=== PATIENT | female | born 1990 | race Caucasian/White ===

== ENCOUNTER 2023-08-20 11:00 | Outpatient (CLI) | payer OTHER | END 2023-08-20 11:15 | disposition home or self-care (01) | LOC: LAB.N 11:00 | PROVIDERS: ATTEND Physician Assistant | DX: Z32.01 Encounter for pregnancy test, result positive (principal) | CPT/HCPCS: 36415; 84702 ==

== ENCOUNTER 2023-08-27 08:00 | Outpatient (CLI) | payer OTHER ==
[2023-08-27 17:40] LABS: BILIRUBIN,URINE NEGATIVE (NEGATIVE); GLUCOSE, URINE (UA) NEGATIVE (NEGATIVE); KETONES,URINE (UA) NEGATIVE (NEGATIVE); LEUKOCYTE ESTERASE, URINE TRACE (NEGATIVE); NITRITE,URINE NEGATIVE (NEGATIVE); OCCULT BLOOD,URINE NEGATIVE (NEGATIVE); PROTEIN,URINE NEGATIVE (NEGATIVE); UROBILINOGEN,URINE 0.2 (NORMAL) E.U./dL (NORMAL)
[2023-08-27 17:52] LABS: BACTERIA,URINE Rare /HPF (None Seen); CLARITY,URINE CLEAR (CLEAR); RBC,URINE 0-5 /HPF (0-5); SQUAMOUS EPITHELIAL CELL,UR RARE Squamous (<= Few); WBC,URINE 0-3 /HPF (0-5)
== END 2023-08-27 23:59 | disposition home or self-care (01) ==
LOC: LAB.WC 08:00
PROVIDERS: ATTEND Obstetrics & Gynecology
DX: Z34.90 Encounter for supervision of normal pregnancy, unspecified, unspecified trimester (principal)
CPT/HCPCS: 81001; 87086

== ENCOUNTER 2023-09-04 19:00 | Outpatient (CLI) | payer OTHER ==
--- NOTE | 2023-09-06 22:06 | Ultrasound Report ---
PROCEDURE: OB 1st Trimester w/TV INDICATIONS: POSITIVE TEST OUTSIDE/PRIOR DATING DATA: Last menstrual period (LMP): 07/13/2023. LMP-based estimated date of delivery (OSCAR): 04/18/2024. First dating scan (date and location): 09/04/2023. Estimated date of delivery (OSCAR) from first dating scan: 04/15/2024. TECHNIQUE: Real-time scanning was performed of the fetus and maternal pelvic organs, with image documentation. Endovaginal scanning was also performed to better visualize the fetus and maternal ovaries. COMPARISON: None. FINDINGS: Intrauterine gestational sac present. Mean gestational sac diameter is 3.87 cm with estima mook gestational age of 9 weeks and 2 days. Embryo: [place]-rump length is 1.58 cm with estimated gestational age of 8 weeks and 0 days Heart rate: 166 bpm. Cervix is closed. Estimated gestational age by initial ultrasound is 8 weeks and 0 days. Other: Subchorionic hematoma measuring 1.9 x 1.5 x 2.7 cm. Measurement variability in dating: +/- 4 weeks by LMP, +/- 7 days by mean sac diameter (use before 6 weeks gestation if crown-rump length not able to be measured), +/- 5 days by crown-rump length (6-12 weeks gestation). Maternal organs: Ovaries appear within normal limits. Right corpus luteal cyst. IMPRESSION: 1.Single living intrauterine with estimated gestational age of 8 weeks and 0 days. 2.Subchorionic hematoma measuring 1.9 x 1.5 x 2.7 cm. 3.Right corpus luteal cyst. Reviewed by: Shira Olguin MD on 09/06/2023 10:05 PM PDT Approved by: Shira Olguin MD on 09/06/2023 10:05 PM PDT Station ID: [id number]
== END 2023-09-04 19:01 | disposition home or self-care (01) ==
LOC: DI 19:00
PROVIDERS: ATTEND Obstetrics & Gynecology
DX: O46.8X1 Other antepartum hemorrhage, first trimester (principal); O34.81 Maternal care for other abnormalities of pelvic organs, first trimester; N83.11 Corpus luteum cyst of right ovary; Z3A.08 8 weeks gestation of pregnancy

== ENCOUNTER 2023-09-10 08:00 | Outpatient (CLI) | payer OTHER ==
[2023-09-11 00:02] LABS: CHLAMYDIA TRACHOMATIS DNA NEGATIVE (NEGATIVE); NEISSERIA GONORRHOEAE DNA NEGATIVE (NEGATIVE); TRICHOMONAS VAGINALIS DNA NEGATIVE (NEGATIVE)
[2023-09-11 21:58] LABS: BACTERIAL VAGINOSIS DNA POSITIVE (NEGATIVE); CANDIDA GLABRATA DNA NEGATIVE (NEGATIVE); CANDIDA GROUP DNA NEGATIVE (NEGATIVE); CANDIDA KRUSEI DNA NEGATIVE (NEGATIVE); TRICHOMONAS VAGINALIS DNA NEGATIVE (NEGATIVE)
== END 2023-09-10 23:59 | disposition home or self-care (01) ==
LOC: LAB.WC 08:00
PROVIDERS: ATTEND Nurse Practitioner
DX: N89.8 Other specified noninflammatory disorders of vagina (principal)
CPT/HCPCS: 81514; 87491; 87591; 87661

== ENCOUNTER 2023-09-28 12:04 | Outpatient (CLI) | payer OTHER ==
[2023-09-28 12:34] LABS: BASOPHILS % (AUTO) 0.3 %; EOSINOPHILS # (AUTO) 0.1 10^3/uL (0.0-0.7); EOSINOPHILS % (AUTO) 1.6 %; HCT - HEMATOCRIT 37.5 % (37.0-47.0); HGB - HEMOGLOBIN 12.6 g/dL (12.0-16.0); LYMPHOCYTES # (AUTO) 1.1 10^3/uL (1.5-3.5); LYMPHOCYTES % (AUTO) 16.9 %; MEAN CORPUSCULAR HGB CONC 33.6 g/dL (32.0-36.0); MEAN CORPUSCULAR VOLUME 92.4 fL (81.0-99.0); MONOCYTES # (AUTO) 0.5 10^3/uL (0.0-1.0); NEUTROPHILS # (AUTO) 4.9 10^3/uL (1.5-6.6); NEUTROPHILS % (AUTO) 73.6 %; PLT - PLATELET COUNT 230 10^3/uL (130-450); RED BLOOD COUNT 4.06 10^6/uL (4.20-5.40); RED CELL DISTRIBUTION WIDTH 11.7 % (12.0-15.0); WHITE BLOOD COUNT 6.7 x10^3/uL (4.8-10.8)
[2023-09-28 13:02] LABS: CREATININE,URINE 42.4 mg/dL; PROTEIN/CREATININE RATIO,URINE 0.1 (<=0.2)
[2023-09-28 13:02] LABS: ALBUMIN 4.2 g/dL (3.2-5.5); ALBUMIN/GLOBULIN RATIO 1.7 (1.0-2.2); BILIRUBIN,TOTAL 0.4 mg/dL (0.2-1.0); CALCIUM 9.8 mg/dL (8.5-10.3); CREATININE 0.5 mg/dL (0.6-1.3); POTASSIUM 3.2 mmol/L (3.5-4.5); TOTAL PROTEIN 6.7 g/dL (6.4-8.9)
[2023-09-29 02:08] LABS: HBsAG SCREEN Negative (Negative); HIV SCREEN 4TH GENERATION Non Reactive (Non Reactive)
[2023-09-29 04:09] LABS: RPR Non Reactive (Non Reactive)
[2023-09-29 09:11] LABS: VARICELLA-ZOSTER AB IGG 521 index (Immune >165)
== END 2023-09-28 12:05 | disposition home or self-care (01) ==
LOC: LAB 12:04
PROVIDERS: ATTEND Obstetrics & Gynecology
DX: O10.011 Pre-existing essential hypertension complicating pregnancy, first trimester (principal)
CPT/HCPCS: 36415; 80053; 82570; 84156; 85025; 86592; 86762; 86787; 86803; 86850; 86900; 86901; 87340; 87389

== ENCOUNTER 2023-10-26 12:15 | Outpatient (CLI) | payer OTHER | END 2023-10-26 12:16 | disposition home or self-care (01) | LOC: LAB 12:15 | PROVIDERS: ATTEND Obstetrics & Gynecology | DX: Z34.90 Encounter for supervision of normal pregnancy, unspecified, unspecified trimester (principal) | CPT/HCPCS: 36415; 82105 ==

== ENCOUNTER 2023-12-03 15:53 | Outpatient (CLI) | payer OTHER ==
--- NOTE | 2023-12-04 14:04 | Ultrasound Report ---
PROCEDURE: OB Anatomy Scan INDICATIONS: SUPERVISION OF The below data below was generated using the working OSCAR of 12/14/2024 TECHNIQUE: Ultrasound of the gravid uterus was performed and recorded. COMPARISON: None. FINDINGS: General: A single live intrauterine gestation is present. Presentation: Variable Placenta: Placental position is anterior without previa. Amniotic fluid index: 12.5 cm, 27 percentile for gestational age. heart rate: 148 beats per minute. Maternal cervical canal: 3.98 cm long; normal length is 2.5 cm or more. biometrics: Biparietal diameter: 4.8 cm, 20 week 5 day, 42 percentile Head circumference: 19 cm, 21 week 3 day, 67 percentile Abdominal circumference: 15 cm, 20 week 3 day, 28 percentile Femur length: 3.4 cm, 20 week 5 day, 34 percentile Estimated gestational age by working dates: 20 week 6 day Composite gestational age by current ultrasound: 20 week 5 day Estimated weight and percentile: 3007 5 g, 32 percentile Measurement variability in biometric dating: +/- 10 days from 12-20 weeks gestation, +/- 2 weeks from 20-30 weeks gestation, +/- 3 weeks at 30 weeks gestation or more. Anatomic survey: Neuro: Ventricles are non-dilated at less than 10 mm. Cisterna magna is normal at 3-11 mm. Cerebel lum is normal in size and morphology. Nuchal skin fold: Normal at less than 6 mm between 14-20 weeks gestational age. Face: Nose and lips, facial profile are normal. Spine: Not well seen Heart: 4-chambered heart is present, with normal ventricular outflow tracts. Diaphragm: Diaphragm is intact. Stomach: Left-sided stomach is present. Kidneys: No hydronephrosis. Normal is less than 5 mm in 2nd trimester, less than 7 mm in 3rd trimester. Cord: 3-vessel cord . Cord insertion not well seen Bladder: Normal in size. Extremities: All 4 extremities identified. Other: Not applicable. IMPRESSION: Single live intrauterine consistent with 20 week 5 day gestation by current ultrasound Placental cord insertion and spine not well seen. Attention on follow-up. Reviewed by: Michael Sharma MD on 12/04/2023 1:03 PM RAFFY Approved by: Michael Sharma MD on 12/04/2023 1:03 PM RAFFY Station ID: [id number]
== END 2023-12-03 15:54 | disposition home or self-care (01) ==
LOC: DI 15:53
PROVIDERS: ATTEND Obstetrics & Gynecology
DX: Z34.92 Encounter for supervision of normal pregnancy, unspecified, second trimester (principal)

== ENCOUNTER 2023-12-21 10:15 | Outpatient (CLI) | payer OTHER ==
--- NOTE | 2023-12-22 00:55 | Ultrasound Report ---
PROCEDURE: OB Follow up INDICATIONS: SUPERVISION OF OUTSIDE/PRIOR DATING DATA: Last menstrual period (LMP): 07/13/2023. LMP-based estimated date of delivery (OSCAR): 04/18/2024. First dating scan (date and location): 09/04/2023. Estimated date of delivery (OSCAR) from first dating scan: 04/15/2024. The below data below was generated using the working OSCAR of 04/15/2024 TECHNIQUE: Ultrasound of the gravid uterus was performed and recorded. COMPARISON: None. FINDINGS: General: A single live intrauterine gestation is present. Presentation: Vertex Placenta: Placental position is anterior without previa. Amniotic fluid index: 13.5 cm, 35 percentile for gestational age. heart rate: 132 beats per minute. Maternal cervical canal: 3.6 cm long; normal length is 2.5 cm or more. Estimated gestational age by working dates: 23 week 3 day spine and Cord insertion are within normal limits Other: Not applicable. IMPRESSION: Single live intrauterine consistent with 23 week 3 day gestation by current ultrasound Normal complete anatomic survey Reviewed by: Michael Sharma MD on 12/21/2023 11:54 PM RAFFY Approved by: Michael Sharma MD on 12/21/2023 11:54 PM RAFFY Station ID: [id number]
== END 2023-12-21 10:16 | disposition home or self-care (01) ==
LOC: DI 10:15
PROVIDERS: ATTEND Obstetrics & Gynecology
DX: Z34.92 Encounter for supervision of normal pregnancy, unspecified, second trimester (principal)

== ENCOUNTER 2024-04-01 08:01 | Inpatient (IN) ==
[2024-04-01] MEDS ORDERED: METHYLERGONOVINE 0.2 MG/ML VIAL IM PRN ×2 (08:13→09:19)
[2024-04-01] MEDS ORDERED: miSOPROStoL 200 MCG TABLET BC PRN (08:13)
[2024-04-01] MEDS ORDERED: LABETALOL 20 MG/4 ML SYRINGE IVP PRN ×5 (08:13→09:19)
[2024-04-01] MEDS ORDERED: hydrALAZINE INJ 20 MG/ML VIAL IVP PRN ×3 (08:13→09:19)
[2024-04-01] MEDS ORDERED: NIFEdipine 10 MG CAPSULE PO PRN ×2 (08:13→09:19)
[2024-04-01] MEDS ORDERED: CARBOPROST TROMETHAMINE 250 MCG/ML VIAL IM PRN (08:13)
[2024-04-01] MEDS ORDERED: lidocaine 1% 20 ML MDV ID PRN (08:13)
[2024-04-01] MEDS ORDERED: LACTATED RINGERS 1,000 ML IV PRN ×2 (08:13→09:19)
[2024-04-01] MEDS ORDERED: SODIUM CHLORIDE FLUSH 0.9% 10 ML SYRINGE IVP PRN ×2 (08:13→09:19)
[2024-04-01] MEDS ORDERED: OXYTOCIN 10 UNIT/ML VIAL IM PRN (08:13)
[2024-04-01] MEDS ORDERED: miSOPROStoL 200 MCG TABLET PR PRN (09:19)
[2024-04-01] MEDS ORDERED: ONDANSETRON 4 MG/2 ML VIAL IVP PRN (09:19)
[2024-04-01] MEDS ORDERED: ONDANSETRON ODT 4 MG TABLET TL PRN (09:19)
[2024-04-01] MEDS ORDERED: OXYTOCIN/SODIUM CHLORIDE 500 ML IV PRN (09:19)
[2024-04-01] MEDS ORDERED: fentaNYL 100 MCG/2 ML VIAL IVP PRN (09:19)
[2024-04-01] MEDS ORDERED: METOCLOPRAMIDE 10 MG/2 ML VIAL IVP PRN (09:19)
[2024-04-01] MEDS ORDERED: METOCLOPRAMIDE 10 MG TABLET PO PRN (09:19)
[2024-04-01] MEDS: miSOPROStoL 100 MCG TABLET VG SCH (09:26)
[2024-04-01 09:37] LABS: BASOPHILS # (AUTO) 0.1 10^3/uL (0.0-0.1); BASOPHILS % (AUTO) 0.4 %; EOSINOPHILS # (AUTO) 0.1 10^3/uL (0.0-0.7); EOSINOPHILS % (AUTO) 0.9 %; HCT - HEMATOCRIT 38.6 % (37.0-47.0); HGB - HEMOGLOBIN 12.6 g/dL (12.0-16.0); LYMPHOCYTES # (AUTO) 1.2 10^3/uL (1.5-3.5); LYMPHOCYTES % (AUTO) 10.5 %; MEAN CORPUSCULAR HEMOGLOBIN 30.1 pg (27.0-31.0); MEAN CORPUSCULAR HGB CONC 32.6 g/dL (32.0-36.0); MEAN CORPUSCULAR VOLUME 92.3 fL (81.0-99.0); MEAN PLATELET VOLUME 11.6 fL (7.9-10.8); MONOCYTES # (AUTO) 0.8 10^3/uL (0.0-1.0); MONOCYTES % (AUTO) 6.6 %; NEUTROPHILS # (AUTO) 9.5 10^3/uL (1.5-6.6); PLT - PLATELET COUNT 245 10^3/uL (130-450); RED BLOOD COUNT 4.18 10^6/uL (4.20-5.40); RED CELL DISTRIBUTION WIDTH 12.7 % (12.0-15.0); WHITE BLOOD COUNT 11.7 x10^3/uL (4.8-10.8)
[2024-04-01] MEDS ORDERED: TERBUTALINE 1 MG/ML VIAL SUBQ SCH (10:00)
[2024-04-01] MEDS ORDERED: SODIUM CHLORIDE 0.9% 1,000 ML IV SCH (10:00)
[2024-04-01 11:04] LABS: ALBUMIN 3.8 g/dL (3.2-5.5); ALBUMIN/GLOBULIN RATIO 1.5 (1.0-2.2); BILIRUBIN,TOTAL 0.5 mg/dL (0.2-1.0); CALCIUM 9.3 mg/dL (8.5-10.3); CREATININE 0.6 mg/dL (0.6-1.3); POTASSIUM 3.8 mmol/L (3.5-4.5); TOTAL PROTEIN 6.4 g/dL (6.4-8.9)
--- NOTE | 2024-04-01 11:04 | PHARMACY PROGRESS NOTE ---
Best Possible Medication History Admit Date and Time: 04/01/24 0813 Home Medications Medication Instructions Recorded Confirmed Type aspirin 81 mg tablet,delayed 81 mg PO QDAY 01/06/24 04/01/24 History release (Adult Aspirin Regimen) prenat.vits,quincy,xph-[id number]-[id number] 1 tab PO DAILY 01/06/24 04/01/24 History labetalol 200 mg tablet 400 mg (2 x 200 mg) PO TID #90 tabs 03/21/24 04/01/24 Rx Processed by: Pharmacy Medications reviewed in ED?: No Medication History completed: Yes Secondary Source(s): Physician records, Pharmacy records and Insurance records [facility] Statement: As the person ultimately responsible for medication therapy, providers are able to order a medication from an existing home medication list in [facility] via the "Reconcile Routine" prior to Confirmation of that medication by community support professional. Such practice is discouraged except when the physician, in their clinical judgment, deems that a medical need exists for a medication without regard to previous use.
[2024-04-01 12:33] LABS: CREATININE,URINE 23.2 mg/dL; TOTAL PROTEIN,URINE TIMED < 4 mg/dL
[2024-04-01] MEDS: LABETALOL 100 MG TABLET PO ONE (17:02)
--- NOTE | 2024-04-01 20:11 | HISTORY & PHYSICAL EXAMINATION ---
Admit History Visit Reason Visit Reason: Other (induction of labor.) Care: positive [facility] Complications This : positive Chronic HTN Smoking Status: Former smoker Other Maternal History Other Maternal History: Patient presents for labor induction. HTN with pretty good control. but on labetolol 400 mg tid. yesterday in clinic she was 2 cm. this am, feel pretty crappy. did not sleep last night. just not right. bp pretty low when she got here. felt better wtih some crackers. not having headache today. more nausea recently. Intake from vist last week. Visit Reasons: 38wk OB/NST Clinical Staff Note: Pt here for her 37.3wk visit and NST. Pt has been keeping BP log. BPs 130s-140s/90s-100s. 03/26 BP 153/95, 03/27 BP 146/104. Today BP 126/84. States LUGO since yesterday. Took Tylenol last night and was able to sleep. LUGO still there this am. Denies vision change or upper rt abd pain. Allergies No Known Drug Allergies Allergy (Verified 03/24/24 10:55) Home Medications - Last Reconciled 03/28/24 by Abi Culp RN aspirin (Adult Aspirin Regimen) 81 mg PO QDAY labetalol 400 mg (2 x 200 mg) PO TID prenat.vits,quincy,zyb-iuvo-wolmx tabs PO Expected Delivery Route/Plan induction due to cHTN. 37 to 39 weeks. Specific Issues/Plans 35 LMP: 07/13/23 (estimate) OSCAR by LMP: 04/18/23 US:09/04/23 @ 8+0 c/w LMP, OSCAR 04/15/24 Final OSCAR: 04/15/24 by 1st tri Lucy is in [employer]. FOB: James, retired. - has 2 children from previous relationship, this is their first together. It's a boy- Jermaine Juares Issues: cHTN - on lisinopril prior to , no antihyptensive at beginning of , 02/15 started labetolol 100 mg bid for bp 152/82 then 140/81. Increased to 300 TID 03/14. 400TID on 03/21. - baby aspirin - taking - baseline CMP, pr:cr - normal. 12/13 labs normal. - Growth US ordered 02/02/24 EFW 43%tile, normal BRANDO. US 03/01 normal growth and fluid. - Twice weekly NST, needs weekly BRANDO. Left knee osteoarthritis - steroid injections, topical diclofenac PRN. hurts all the time. AMA by OSCAR Pre- Weight:142.5 BMI: 25.33 Blood type: O+ Antibody: Negative CBC: PLT 230 HCT 37.5 HGB 12.6 RUB: Immune VZV: non-immune HBsAg: negative HepC: NR RPR/AB-EIA: NR HIV: NR PAP:09/27/21 - normal GC/CT:Negative HSV:denies in self and partner Genetic testin09/28/2023 [id number] Negative Covid: vaccinated previously, declines in Flu:12/2023 FAS: 12/04/23 needs follow up for cord insertion and spine. ordered 12/03. otherwise normal. Placenta: anterior, no previa Cord: 3VC BRANDO: 12.5 EFW: 32%tile Follow up US 12/20: cord insertion and spine normal. 50gm OGCT:87 3HR GTT: TDAP: 01/17 Breast Pump: discussed, will order online RPR: NR Antibody screen: 3rd trimester H/H 11.7/34.3 PLT 219 3rd trimester HIV GBS: MOD: IOL 04/01 Contraception: OB Visit Log Initial Weight: 142 lb Date EGA Weight BP Fundal ht Pres HR Movement CTX Edema Cerv Dil Cerv Eff % Sta 01/06/24 25w 5d 158 lb 6.4 oz(+16 lb 6.4 oz) 134/97 24 150 active absent absent 01/18/24 27w 3d 158 lb(+16 lb) 126/70 27 135 active ab sent absent 02/03/24 29w 5d 164 lb(+22 lb) 146/85441/78 29 150 active ab sent 02/09/24 30w 4d 163 lb(+21 lb) 142/36374/90 30 vtx 131 active ab sent absent 02/16/24 31w 4d 164 lb 6 oz(+22 lb 6 oz) 152/42245/84 135 act keri absent absent 03/01/24 33w 4d 169 lb 6 oz(+27 lb 6 oz) 156/100 acti ve absent absent 03/14/24 35w 3d 167 lb 6 oz(+25 lb 6 oz) 143/84 33 140 active absent absent 03/21/24 36w 3d 163 lb(+21 lb) 138/90 140 active absen t absent 03/28/24 37w 3d 167 lb(+25 lb) 126/84 ceph active absent absent Notes Visit Date: 03/28/24 Last Updated by: MD Lucy Baker here today with her partner. She is scheduled for IOL later this week. Reports mild headache last night, again this morning. Headache has resolved with tylenol and drinking water. Reports she has had headaches throughout and feels similar. Denies vision changes, upper abdominal pain. Taking labetalol 400mg TID. She has had some mildly elevated BPs at home, but BP normal here today. Labs ordered, will go after visit. Last growth US reviewed, cephalic with EFW 66%tile. Will return for NST scheduled on . Declines SVE today. Preeclampsia precautions reviewed. Visit Date: 03/21/24 Last Updated by: GREYSON Robles Reactive NST. Hypertension in - Currently on Labetalol 300 mg TID, blood pressure 138/90 - Increase to 400 mg TID and resend prescription. - Patient confirms taking 300 mg TID. Urine PCR - Order urine PCR- resulted prior to closure of this note 0.2. Delivery Planning - Discuss delivery around 38 weeks gestation. - IOL scheduled at [facility] 04/01/2023 @ 0800 HPI Diagnosis/Indication for NST: Pre- Hypertension NST Procedure NST Procedure: Reactive for of 32 weeks gestation or more. NST tracing contains at least two heart rate accelerations that are at least 15 beats per minute above the baseline rate and lasting at least 15 seconds from onset to return to baseline within a twenty minute period. Results and Plan Findings/Impression: reactive NST Plan: proceed with induction Meds/Allgy Home Medications Ambulatory Orders Medication Instructions Recorded Confirmed aspirin 81 mg tablet,delayed 81 mg PO QDAY 01/06/24 04/01/24 release (Adult Aspirin Regimen) prenat.vits,quincy,xfz-hevx-[id number] 1 tab PO DAILY 01/06/24 04/01/24 labetalol 200 mg tablet 400 mg (2 x 200 mg) PO TID #90 tabs 03/21/24 04/01/24 Allergies Allergies Allergy/AdvReac Type Severity Reaction Status Date / Time No Known Drug Allergies Allergy Verified 03/31/24 10:54 [facility] Medical History Medical History (Updated 04/01/24 @ 20:31 by Anca Ojeda MD) Traumatic arthritis of left knee (11/26/21) Pre-existing essential hypertension affecting Surgical History Surgical History [place] teeth extracted H/O breast augmentation H/O left knee surgery x3 around 2003 Family History Family History (Updated 01/06/24 @ 18:39 by Kika Bess MA) Mother High blood pressure CVA (cerebral vascular accident) Osteoporosis Father High blood pressure Prostate cancer Grandfather High blood pressure Prostate cancer Grandmother High blood pressure Social History Social History (Updated 04/01/24 @ 20:21 by Anca Ojeda MD) Smoking Status: Former smoker Do you dip or chew tobacco?: No Patient requests smoking cessation consult: No Initiate information on smoking cessation: No Living arrangement: At home Marital Status: Living Condition: With spouse/s.o. Relationship: Spouse Living Situation Details: James. retired [place]. he has kids from prior relationship. Level: Independent ETOH Use: None Substance Use: denies use Are you sexually active?: Yes Service: Yes Dates of Service: currently in the [employer] Review of Systems Constitutional Reports: Fatigue Eyes Denies: Blurry vision or Floaters Cardiovascular Denies: chest pain or shortness of breath with exertion Respiratory Denies: Shortness of breath Gastrointestinal Reports: Nausea Endocrine Reports: Fatigue Physical Abdominal Exam Contraction Frequency (min/apart): irregular Contraction Intensity: positive Mild Uterine Resting Tone: positive Soft Monitoring Heart Rate Baseline: 145 Strip Review: positive Category I Presentation Presentation: positive Vertex Vaginal Exam Membranes: positive Membranes intact Dilation (in cm): 2 Effacement (%): 80 Station: positive -3 Cervical Position: positive Midposition Other Notes Labor Progress Note/Additional Text: initially seen at 8 am when she arrived. did not recheck cervix from yesterday. start with miso and hold labetolol for now as bp low. at 1300 I came in to see her and placed a catheter in her cervix. 2/80/-3. very soft. inner balloon with 80 cc, vaginal with 20. discussed catheter prior to placement and she agreed. she tolerated placement OK. And then was cale every 3 min and quite painful. the inner ballon was taken down after about 30 min and the entire catheter removed at 1.5 hrs as she was not able to tolerate. next miso placed after that, as she was cale too much to place while catheter was in. AMBROSE elevated and 100 mg labetolol given. 1700 I came to see her. pretty comfortable. bps < 140/90. will get 3rd dose of miso at about 1830. BAby still category 1 2029 rn called me as bps are signficantly higher. 150s/90s. will give 200 mg of labetolol now. and reassess in 1 hr. patient doing [employer]. still pretty comfortable. Plan for Labor Plan For Labor I expect patient to be DC'd or transferred within 96 hours.: Yes Plan for Labor: miso next at 2230. will recheck cervix then. Conclusion/Plan Problem List (1) Chronic hypertension with exacerbation during in third trimester: Plan: labetolol as needed to control bp. (2) Encounter for induction of labor: Plan: next miso at 2230. will check cervix then. Lab Results Lab results reviewed: Yes 04/01/24 09:00 04/01/24 09:00
[2024-04-01] MEDS: LABETALOL 100 MG TABLET PO SCH ×2 (20:20→23:30)
--- NOTE | 2024-04-01 23:08 | PROVIDER PROGRESS NOTE ---
Labor Progress Note Uterine Monitoring Uterine Monitoring Mode: positive External toco Contraction Intensity: positive Mild Uterine Resting Tone: positive Soft Other Uterine Monitoring: not regular Monitoring Monitor Mode: positive External ultrasound Heart Rate Baseline: 145 Heart Rate Variability: positive Moderate (6-25 bmp) Accelerations: positive Present, 15x15 Decelerations: positive None Strip Review: positive Category I Vaginal Exam Dilation (in cm): 4 Effacement (%): 80 Station: -2 Cervical Position: Midposition Labor Progress Note Labor Progress Note/Additional Text: slightly more uncomfortable. contractions are not regular. cervix is very soft. BP 138/95. will give labetolol 100 mg now. laobr induction options discussed. could AROM, pitocin, miso. will miso then at 3-4 am start pitocin. hopefully she can get some sleep before she gets more uncomfortable. Does plan epidural at some point.
--- NOTE | 2024-04-02 01:03 | PROVIDER PROGRESS NOTE ---
Labor Progress Note Labor Progress Note Labor Progress Note/Additional Text: bp higher. will give 200 mg labetolol. still comfortable. with this dose 600 mg total today.
[2024-04-02] MEDS: LABETALOL 100 MG TABLET PO SCH ×2 (01:23→22:06)
[2024-04-02] MEDS: OXYTOCIN/SODIUM CHLORIDE 500 ML IV SCH (03:56)
[2024-04-02] MEDS: LACTATED RINGERS 1,000 ML IV PRN (03:57)
[2024-04-02] MEDS: ACETAMINOPHEN 325 MG TABLET PO PRN (04:07)
[2024-04-02] MEDS ORDERED: LABETALOL 100 MG TABLET PO SCH (05:40)
[2024-04-02] MEDS ORDERED: ePHEDrine 50 MG/ML VIAL IVP ONE (08:51)
[2024-04-02] MEDS ORDERED: LIDOCAINE 2%-EPI 1:100000 20 ML MDV ONE (08:52)
[2024-04-02] MEDS ORDERED: ROPIVACAINE 0.2% 200 MG/100 ML BAG EP ONE (08:52)
[2024-04-02] MEDS ORDERED: NALOXONE 0.4 MG/ML VIAL IVP PRN ×3 (09:43→19:14)
[2024-04-02] MEDS ORDERED: diphenhydrAMINE INJ 50 MG/ML VIAL IVP PRN (09:43)
[2024-04-02] MEDS ORDERED: LACTATED RINGERS 500 ML IV ONE (09:43)
[2024-04-02] MEDS ORDERED: ONDANSETRON 4 MG/2 ML VIAL IVP PRN (09:43)
[2024-04-02] MEDS ORDERED: NALBUPHINE 10 MG/ML AMP IVP PRN (09:43)
[2024-04-02] MEDS ORDERED: METOCLOPRAMIDE 10 MG/2 ML VIAL IVP PRN (09:43)
[2024-04-02] MEDS ORDERED: ePHEDrine 50 MG/ML VIAL IVP PRN (09:43)
[2024-04-02] MEDS ORDERED: ROPIVACAINE 0.2% 200 MG/100 ML BAG EP PRN (09:43)
--- NOTE | 2024-04-02 09:43 | ANESTHESIA PROCEDURE NOTE ---
Pre-Anesthesia VS, & Labs Diagnosis Surgical Diagnosis:: term labor pain Procedure Procedure: epidural for NPO Last Fluid Intake: t/o noc Is Patient ?: Yes Lab Results Current Lab Results: Laboratory Tests 04/01/24 09:00: WBC 11.7 H, RBC 4.18 L, Hgb 12.6, Hct 38.6, MCV 92.3, MCH 30.1, MCHC 32.6, RDW 12.7, Plt Count 245, MPV 11.6 H, Neut # (Auto) 9.5 H, Lymph # (Auto) 1.2 L, [place] # (Auto) 0.8, Eos # (Auto) 0.1, Baso # (Auto) 0.1, Absolute Nucleated RBC 0.00, Nucleated RBC % 0.0, Sodium 132 L, Potassium 3.8, Chloride 108, Carbon Dioxide 21, Anion Gap 3.0 L, BUN 11, Creatinine 0.6, Estimated GFR (MDRD) 114, Glucose 86, Calcium 9.3, Total Bilirubin 0.5, AST 15, ALT 14, Alkaline Phosphatase 104, Total Protein 6.4, Albumin 3.8, Globulin 2.6, Albumin/Globulin Ratio 1.5, Blood Type O POSITIVE, Antibody Screen NEGATIVE Lab results reviewed: Yes 04/01/24 09:00 04/01/24 09:00 Meds/Allgy Home Medications Ambulatory Orders Medication Instructions Recorded Confirmed aspirin 81 mg tablet,delayed 81 mg PO QDAY 01/06/24 04/01/24 release (Adult Aspirin Regimen) prenat.vits,quincy,rdj-omdb-dzjxx 1 tab PO DAILY 01/06/24 04/01/24 labetalol 200 mg tablet 400 mg (2 x 200 mg) PO TID #90 tabs 03/21/24 04/01/24 Allergies Allergies Allergy/AdvReac Type Severity Reaction Status Date / Time No Known Drug Allergies Allergy Verified 03/31/24 10:54 [facility] Medical History Medical History (Updated 04/01/24 @ 20:31 by Anca Ojeda MD) Traumatic arthritis of left knee (11/26/21) Pre-existing essential hypertension affecting Surgical History Surgical History [place] teeth extracted H/O breast augmentation H/O left knee surgery x3 around 2003 Family History Family History (Updated 01/06/24 @ 18:39 by Kika Bess MA) Mother High blood pressure CVA (cerebral vascular accident) Osteoporosis Father High blood pressure Prostate cancer Grandfather High blood pressure Prostate cancer Grandmother High blood pressure Social History Social History (Updated 04/01/24 @ 20:21 by Anca Ojeda MD) Smoking Status: Former smoker Do you dip or chew tobacco?: No Patient requests smoking cessation consult: No Initiate information on smoking cessation: No Living arrangement: At home Marital Status: Living Condition: With spouse/s.o. Relationship: Spouse Living Situation Details: James. retired [employer]. he has kids from prior relationship. Level: Independent ETOH Use: None Substance Use: denies use Are you sexually active?: Yes Service: Yes Dates of Service: currently in the [place] Anesthesia Exam (Expanded) Exam General: Alert, Oriented x3 and Moderate distress Dental: WNL Mouth Openin Fingerbreadth Neck Mobility: Normal Thyromental Distance: 4-6 cm Respiratory: Lungs clear and Normal breath sounds Cardiovascular: Regular rate Neurological: Normal speech Mental/Cognitive Status: Alert/Oriented X3 and Normal for patient Cognitive Status: Within normal limits Plan Problem List (1) Chronic hypertension with exacerbation during in third trimester: Plan: labetolol as needed to control bp. (2) Encounter for induction of labor: Plan: next miso at 2230. will check cervix then. Plan Anesthesia Type: Epidural Consent for Procedure(s) Verified and Reviewed: Yes Code Status: Attempt Resuscitation ASA Classification ASA classification: 2-Mild systemic disease Is this case an emergency?: No
[2024-04-02] MEDS: LABETALOL 100 MG TABLET PO ONE ×2 (11:37→15:06)
--- NOTE | 2024-04-02 15:40 | PROVIDER PROGRESS NOTE ---
Labor Progress Note Uterine Monitoring Uterine Monitoring Mode: positive IUPC Contraction Frequency (min/apart): q2-3 peak at 70 Contraction Intensity: positive Moderate to strong Uterine Resting Tone: positive Soft Monitoring Monitor Mode: positive External ultrasound Heart Rate Baseline: mostly 145. then baseline down to 125. Heart Rate Variability: positive Moderate (6-25 bmp) Accelerations: positive Present, 15x15 Decelerations: positive None Strip Review: positive Category I Vaginal Exam Dilation (in cm): 8 Station: 1 Labor Progress Note Labor Progress Note/Additional Text: patient seen at 11:50. needed 200 mg of labetol at about 11. comfortable with her epidural. contractions getting more frequent. exam done. AROM after discussion and consent. clear fluid. 5/80/-2. 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 pitocin per protocol. recheck at 14:40. very uncomfortable. like epidural not working at all. [employer] rebolused and she felt a change and relief very quickly. cervical check and 8/+1 but feels OP deflexed. BP elevated even after bolus so 200 mg labetolol given. UP to 160/99 transiently. contractions very regular now. will switch to an exaggerated side lying position and see if baby will rotate. recheck in 1-2 hours. continue pitocin per protocol.
[2024-04-02] MEDS: TRANEXAMIC ACID IN NACL 1,000 MG/100 ML BAG IV PRN (16:50)
[2024-04-02] MEDS: OXYTOCIN/SODIUM CHLORIDE 500 ML IV PRN (16:50)
[2024-04-02] MEDS: miSOPROStoL 200 MCG TABLET PR ONE (16:55)
[2024-04-02] MEDS ORDERED: SODIUM CHLORIDE FLUSH 0.9% 10 ML SYRINGE IVP PRN (18:32)
[2024-04-02] MEDS ORDERED: NIFEdipine 10 MG CAPSULE PO PRN ×2 (18:33→19:14)
[2024-04-02] MEDS ORDERED: OXYTOCIN/SODIUM CHLORIDE 500 ML IV PRN ×2 (18:33→19:14)
[2024-04-02] MEDS ORDERED: hydrALAZINE INJ 20 MG/ML VIAL IVP PRN ×4 (18:33→19:14)
[2024-04-02] MEDS ORDERED: IBUPROFEN 600 MG TABLET PO PRN (18:33)
[2024-04-02] MEDS ORDERED: LABETALOL 20 MG/4 ML SYRINGE IVP PRN ×4 (18:33→19:14)
[2024-04-02] MEDS ORDERED: SIMETHICONE CHEW 80 MG TABLET PO PRN ×2 (18:33→19:14)
[2024-04-02] MEDS ORDERED: LABETALOL 5 MG/1 ML 20 ML MDV IVP PRN ×2 (18:33→19:14)
[2024-04-02] MEDS ORDERED: ACETAMINOPHEN 500 MG TABLET PO PRN (18:33)
--- NOTE | 2024-04-02 19:04 | DELIVERY NOTE ---
Delivery Note Labor Labor: positive Induced by oxytocin Infant Delivery Method Infant Delivery Method: positive Spontaneous vaginal delivery Cervical Ripening Method Cervical Ripening Method: positive Misoprostil Presentation Presentation: positive Vertex and OA - occiput anterior Nuchal Cord Nuchal Cord: positive Present and Reduced Amniotic Fluid Description Amniotic Fluid Description: positive Clear Episiotomy Type Episiotomy Type: positive None Laceration Laceration: positive Labial (bilateral. repaired with running suture on right and then a single figure of 8 on left. ) Suture Suture Type: positive Vicryl Suture Size: positive 4-0 Delivery Outcome Delivery Date: 04/02/24 Delivery Outcome: positive Livebirth [place]: positive Placed in direct skin contact with mother, Stimulated and [place] used sex: positive Male Cord Cord: positive 3 vessels Placenta Placenta: positive Intact and Spontaneous Estimated Blood Loss Estimated Blood Loss (in cc): 1,400 Post Delivery Events Post Delivery Events: positive Hemorrhage Delivery Comments (Free Text/Narrative) Delivery Comments (Free Text/Narrative): G1 with chronic htn. AMA. on Labetolol 400 mg tid at time of admission. here for induction of labor at 38 weeks. S/P miso x 5. had a catheter placed after 2nd miso but was unable to tolerate in more than 1 hr. Pitocin started at 0400 today. epidural placed mid morning and then AROM for clear fluid. She was 5 cm. She progressed well in labor and was complete just after 5 pm. During labor she has some episodes of HTN and I gave her a total of 600 mg labetolol spread thru the day and a half of induction. no hypotension with epidural. Pushed great for 15 min and delivered her son in OA position. Nuchal cord x 1 reduced at perineum. Baby boy Jermaine vigorous from time of delivery. Weighed 7lb 2.2 oz. after delivery, placenta delivered a few minutes later. Uterus contracted well but she had a lot of bleeding. TXA given iv and 600 mcg of miso rectally. pitocin in IV. I did a intrauterine sweep x 2. first time got some vernix then a small amount of tissue. placenta appeared in tact. Straight cath done a bit after delivery to help. as she was leaking urine with fundal massage, even though she had just had the catheter removed just before delivery. she was never unstable with the blood loss.
[2024-04-02] MEDS: IBUPROFEN 600 MG TABLET PO PRN (20:45)
[2024-04-02] MEDS: DOCUSATE SODIUM 100 MG CAPSULE PO SCH (20:46)
[2024-04-02] MEDS ORDERED: DOCUSATE SODIUM 100 MG CAPSULE PO SCH (21:00)
[2024-04-03] MEDS: ACETAMINOPHEN 500 MG TABLET PO PRN (01:47)
[2024-04-03 08:00] LABS: HCT - HEMATOCRIT 31.1 % (37.0-47.0); HGB - HEMOGLOBIN 10.3 g/dL (12.0-16.0); MEAN CORPUSCULAR HEMOGLOBIN 30.8 pg (27.0-31.0); MEAN CORPUSCULAR HGB CONC 33.1 g/dL (32.0-36.0); MEAN CORPUSCULAR VOLUME 93.1 fL (81.0-99.0); MEAN PLATELET VOLUME 11.1 fL (7.9-10.8); RED BLOOD COUNT 3.34 10^6/uL (4.20-5.40); RED CELL DISTRIBUTION WIDTH 12.9 % (12.0-15.0); WHITE BLOOD COUNT 14.7 x10^3/uL (4.8-10.8)
[2024-04-03 08:17] LABS: ALBUMIN 3.3 g/dL (3.2-5.5); ALBUMIN/GLOBULIN RATIO 2.4 (1.0-2.2); BILIRUBIN,TOTAL 0.4 mg/dL (0.2-1.0); CALCIUM 9.2 mg/dL (8.5-10.3); CREATININE 0.6 mg/dL (0.6-1.3); TOTAL PROTEIN 4.7 g/dL (6.4-8.9)
[2024-04-03] MEDS: SODIUM CHLORIDE FLUSH 0.9% 10 ML SYRINGE IVP SCH (08:19)
[2024-04-03 08:29] VITALS: O2SAT 99
--- NOTE | 2024-04-03 16:31 | Discharge Summary ---
"Discharge Summary Admit Date: 04/01/24 Discharge Date: 04/03/24 Discharging Provider: Anca Ojeda MD Code Status: Attempt Resuscitation DIAGNOSES Admission Diagnoses: at 38 weeks with chronic hypertension on labetolol 400 mg tid. Admitted for labor induction Discharge Diagnoses with Status of Each Condition: Labor induced with misoprostol and then pitocin. vaginal delivery 04/02/23 HPI History of Present Illness: 34 yo G1 with term at 38 weeks. Chronic hypertension on lisinopril in before . Now on labetolol 400 mg tid. Baby is normally grown. CONSULTS | PROCEDURES Procedures: Misoprostol x 4 doses of 25 mcg. after the first dose I placed a catheter but she was only able to tolerate that for 1.5 hrs. Oxytocin was started about 4 am on 04/02. Seh started to make good progress. Epidural anesthesia at 09:30 04/02. AROM at 1130, clear. 8 cm at 1400. complete at 1630 and delivery at 16:45. Immediate post partpum hemorrhage with loss of about 1400 cc of blood, treated with oxytocin, TXA, misoprostol 600 mcg rectally. Manual sweep of uterus with some tissue. Her bps were managed during labor with labetolol as needed. total of about 800 mg given. Baby boy Jermaine Juares born at 16:45 and weighed 7 lb 2 oz. Post course was unremarkable and bps were controlled well with 200 mg labetolol tid. She is discharged home on PPD #1. HOSPITAL COURSE Hospital Course: as above. ALLERGIES Allergies Allergy/AdvReac Type Severity Reaction Status Date / Time No Known Drug Allergies Allergy Verified 04/03/24 08:36 MEDICATIONS Ambulatory Orders Medication Instructions Recorded Confirmed prenat.vits,quincy,[id number] 1 tab PO DAILY 01/06/24 04/01/24 acetaminophen 500 mg tablet 500 - 1,000 mg (1 - 2 x 500 mg) PO 04/03/24 (Tylenol Extra Strength) Q8H PRN Pain #30 tabs docusate sodium 100 mg capsule 100 - 200 mg (1 - 2 x 100 mg) PO 04/03/24 BID PRN Constipation #60 caps ibuprofen 600 mg tablet 600 mg PO Q6HR PRN Moderate Pain 04/03/24 (Level 4-6) #30 tabs labetalol 100 mg tablet 200 mg (2 x 100 mg) PO TID #90 tabs 04/03/24 PHYSICAL EXAM AT DISCHARGE General Appearance: positive No acute distress Respiratory: positive No respiratory distress Cardiovascular: positive Regular rate & rhythm Abdomen: positive Non-tender LABS 04/03/24 07:56 04/03/24 07:56 FOLLOW UP Follow Up: in clinic next week for bp check. TIME SPENT Time Spent in Discharge (Minutes): 20 Discharge Plan Discharge Patient Disposition: HALF-WAY, Self Care Condition: Stable Prescriptions: New ibuprofen 600 mg Tablet 600 mg PO Q6HR PRN (Reason: Moderate Pain (Level 4-6)) Qty: 30 0RF labetalol 100 mg Tablet 200 mg PO TID Qty: 90 8RF acetaminophen [Tylenol Extra Strength] 500 mg tablet 500 - 1,000 mg PO Q8H PRN (Reason: Pain) Qty: 30 1RF docusate sodium 100 mg capsule 100 - 200 mg PO BID PRN (Reason: Constipation) Qty: 60 1RF Continued prenat.vits,quincy,[id number] Tablet 1 tab PO DAILY Discontinued labetalol 200 mg tablet 400 mg PO TID Qty: 90 2RF aspirin [Adult Aspirin Regimen] 81 mg tablet,delayed release (DR/EC) 81 mg PO QDAY Activity Restrictions: pelvic rest x 6 weeks Diet: Regular Print Language: [place] Patient Instructions: Vaginal, Follow-up Care: Anca Ojeda MD [Provider Admit Priv/Credential] - Amari Diamond ARNP [Primary Care Provider] -"
[2024-04-03] MEDS: MEASLES,MUMPS & RUBELLA VACC 0.5 ML VIAL SUBQ ONE (18:06)
[2024-04-03 18:33] VITALS: BP 128/79; TEMP 97.5
--- NOTE | 2024-04-03 18:35 | Labor Flowsheet ---
Labor Flowsheet Datetime Report Generated by CPN: 04/03/2024 18:35 Datetime: 04/03/2024 17:53 VITAL SIGNS NBP Sys/Yasmeen/Mean (mmHg): 128 : 79 : 90 Pulse: 80 Datetime: 04/03/2024 06:00 Stage of : Datetime: 04/02/2024 17:29 I/O Interventions: Straight Cath (ml) @ 150 Datetime: 04/02/2024 17:09 SpO2 (%): 98 Datetime: 04/02/2024 16:49 LaborFlag: Labor Datetime: 04/02/2024 16:45 UTERINE ACTIVITY Monitor Mode: Internal Frequency (min): 1.5-2 Quality: Strong Duration (sec): 40-70 Pattern: Normal: <= 5 Contractions in 10 Minutes Resting Tone (Palpate): Relaxed FHR Baseline Rate : 120 Variability: Moderate 6-25 bpm Decelerations: Early Comments: Pt pushing effectively Datetime: 04/02/2024 16:33 STAGE 2 Pushing: Coached on Pushing Pushing Position: Pushing with Contractions; Pushing Lithotomy Pushing Progress: Descent with Pushing; Pushing Effectively with Contractions Datetime: 04/02/2024 16:30 ASSESSMENT A Monitor Mode: External US Accelerations: 15X15 Category: Category I Datetime: 04/02/2024 16:25 VAGINAL EXAM Dilatation (cm): 10.0 Effacement (%): 100 Station: 3 Exam by: Ojeda Datetime: 04/02/2024 15:52 Patient Position/Activity: Left Lateral 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 Datetime: 04/02/2024 15:30 Resting Tone IUP (mmHg): 20 Pateros Units (mmHg): 215 Pitocin Checklist: At Least 1 Acceleration of 15 bpm x 15 Seconds in 30 Minutes or Adequate Variabi lity; No More than 1 Late Deceleration Occurred in Past 30 Minutes; No More than 2 Variable Decelerat ions > 60 Seconds in Duration and decreasing >60 bpm in 30 minutes; No More than 5 Uterine Contractio ns in 10 Minutes for any 20 Minute Interval; Uterus Palpates Soft between Contractions; IUPC Resting Tone less than 25 mmHg Actions for Decelerations: Side to Side Datetime: 04/02/2024 14:32 Pain Presence: Intermittent Pain Type: Contraction Pain Location: Abdomen Anesthesia Comments: PUBLIC HEALTH PHYSICIAN at bedside- bolus given Datetime: 04/02/2024 14:28 COMMUNICATION Communication: Provider at Bedside Datetime: 04/02/2024 12:00 Temperature (C): 36.7 Monitor Interventions for UA: IUPC Inserted Datetime: 04/02/2024 11:48 Membranes Ruptured Date/Time: 04/02/2024 11:48 Membranes Rupture Method: Artificial Amniotic Fluid Color: Clear Amniotic Fluid Amount: Moderate Amniotic Fluid Odor: Normal Datetime: 04/02/2024 11:46 Cervix, Consistency: Soft Cervix, Position: Midposition Datetime: 04/02/2024 10:30 Monitor Interventions for FHR: Ultrasound Adjusted Datetime: 04/02/2024 10:00 Contraction Comments: PItocin decreased to 8mu/min from 12mu/min Datetime: 04/02/2024 09:43 MATERNAL ASSESSMENT Level of Consciousness: Alert DTR's/Clonus: DTRs 2+ Headache: Denies Breath Sounds, Left: Clear and Equal Breath Sounds, Right: Clear and Equal Nausea/Vomiting: Denies RUQ Epigastric Pain: Denies Datetime: 04/02/2024 09:17 Epidural Procedure: Cath Placed; Test Dose Datetime: 04/02/2024 08:59 PROCEDURE TIME OUT Procedure Verify: Correct Patient Identity; Correct Side and Site are Marked; Accurate Procedure Co nsent Form; Agreement on Procedure to be Done; Correct Patient Position; Safety Precautions Based on Patient History or Medication Use ANESTHESIA Anesthesia Plans: Epidural Epidural Positioning: Sitting Datetime: 04/02/2024 08:34 PATIENT CARE IV/Blood Work: IV Bolus Started Datetime: 04/02/2024 08:30 FHR Baseline Changes: No Baseline Change Datetime: 04/02/2024 07:00 Oxygen Method: Room Air Datetime: 04/02/2024 05:34 Provider Notified (Name): DrFaviola Ojeda Notification Reason: Status Update; Uterine Activity; Maternal Vital Sign Change Communication Comments: status update given, VS given. orders received for PO labetalol 200mg once now, TORBV Datetime: 04/02/2024 05:30 MEDICATIONS Pitocin (milliunits): Increased to @ 8 Datetime: 04/02/2024 04:15 Respirations: 16 Datetime: 04/02/2024 04:07 PAIN Pain Scale: 2 Pain Relief Measures: Pain Medication Given Pain Coping: Talking Through Contractions Analgesics/Sedatives: Tylenol (mg) @ 650 Medication Comments: for headache Datetime: 04/02/2024 03:57 Vaginal Bleeding: None Datetime: 04/01/2024 21:27 Hygiene: Shower; Gown Changed Datetime: 04/01/2024 19:29 TEACHING Instructional Method: Verbal Plan of Care: Plan of Care Discussed; Induction Unit Routine: Medications Labor/Induction: Cervical Ripening; Augmentation; Activity Medications: Cervical Ripening; Pitocin Related: Activity and Rest Datetime: 04/01/2024 19:16 Pain Goal: 4 Comfort Measures: Breathing/Relaxation Datetime: 04/01/2024 14:36 Pain Assessment Comments: Per pt request, balloon removed by RN Datetime: 04/01/2024 12:57 Cervical Ripening Agents: Allen Balloon; Cytotec @ Cervical Ripening Agents Other: 80ml uterine/20mlvaginal
== END 2024-04-03 18:30 | disposition home or self-care (01) | DRG 807 ==
LOC: WFO 08:01 → FBP 08:04
PROVIDERS: ADMIT Obstetrics & Gynecology; ATTEND Obstetrics & Gynecology
DX: Z87.891 Personal history of nicotine dependence; Z23 Encounter for immunization; O69.81X0 Labor and delivery complicated by cord around neck, without compression, not applicable or unspecified; O70.0 First degree perineal laceration during delivery; Z79.82 Long term (current) use of aspirin; Z37.0 Single live birth; O10.92 Unspecified pre-existing hypertension complicating childbirth; Z3A.38 38 weeks gestation of pregnancy; Z79.899 Other long term (current) drug therapy; Z91.85 Personal history of military service